=== PATIENT | female | born 1955 | race Caucasian/White ===

== ENCOUNTER 2022-12-05 07:56 | Outpatient (CLI) | payer MEDICARE ==
[2022-12-05 14:48] LABS: BASOPHILS # (AUTO) 0.1 10^3/uL (0.0-0.1); EOSINOPHILS # (AUTO) 0.2 10^3/uL (0.0-0.7); EOSINOPHILS % (AUTO) 2.6 %; HCT - HEMATOCRIT 41.7 % (37.0-47.0); HGB - HEMOGLOBIN 12.8 g/dL (12.0-16.0); LYMPHOCYTES # (AUTO) 2.6 10^3/uL (1.5-3.5); MEAN CORPUSCULAR HEMOGLOBIN 27.4 pg (27.0-31.0); MEAN CORPUSCULAR HGB CONC 30.7 g/dL (32.0-36.0); MEAN CORPUSCULAR VOLUME 89.3 fL (81.0-99.0); MEAN PLATELET VOLUME 12.1 fL (7.9-10.8); MONOCYTES # (AUTO) 0.5 10^3/uL (0.0-1.0); MONOCYTES % (AUTO) 8.1 %; NEUTROPHILS # (AUTO) 2.9 10^3/uL (1.5-6.6); PLT - PLATELET COUNT 245 10^3/uL (130-450); RED BLOOD COUNT 4.67 10^6/uL (4.20-5.40); RED CELL DISTRIBUTION WIDTH 13.8 % (12.0-15.0); WHITE BLOOD COUNT 6.2 x10^3/uL (4.8-10.8)
[2022-12-05 15:25] LABS: THYROID STIMULATING HORMONE 27.57 uIU/mL (0.34-5.60)
[2022-12-05 15:29] LABS: FERRITIN 29.6 ng/mL (11.0-306.8)
[2022-12-05 15:30] LABS: % IRON SATURATION 25 % (20-50); ALBUMIN 4.3 g/dL (3.2-5.5); ALBUMIN/GLOBULIN RATIO 1.6 (1.0-2.2); ALKALINE PHOSPHATASE 42 IU/L (42-121); ALT ALANINE AMINOTRANSFERASE 18 IU/L (10-60); AST ASPARTATE AMINOTRANSFERASE 19 IU/L (10-42); BILIRUBIN,TOTAL 0.8 mg/dL (0.2-1.0); BUN - BLOOD UREA NITROGEN 20 mg/dL (6-20); CALCIUM 9.2 mg/dL (8.5-10.3); CARBON DIOXIDE - CO2 26 mmol/L (21-32); CHLORIDE 103 mmol/L (101-111); CHOL/HDL RATIO 2.8 (<4.4); CHOLESTEROL 262 mg/dL; CREATININE 0.8 mg/dL (0.4-1.0); GFR - MDRD 72 (>89); GLUCOSE 87 mg/dL (70-100); HDL CHOLESTEROL 93 mg/dL; IRON 82 ug/dL (28-170); LDL CHOLESTEROL,CALCULATED 157 mg/dL; LDL/HDL RATIO 1.7 (<4.4); POTASSIUM 3.8 mmol/L (3.5-5.0); SODIUM 138 mmol/L (135-145); TOTAL IRON BINDING CAPACITY 329 ug/dL (250-450); TRANSFERRIN 235 mg/dL (192-382); TRIGLYCERIDES 60 mg/dL; VLDL CHOLESTEROL 12 mg/dL
[2022-12-05 15:55] LABS: FREE T4 (FREE THYROXINE) 0.5 ng/dL (0.58-1.64)
[2022-12-05 16:04] LABS: CRP - C-REACTIVE PROTEIN < 1.0 mg/dL (0-1.0)
[2022-12-06 12:09] LABS: CALCIUM IONIZED SERUM 5.1 mg/dL (4.5-5.6)
== END 2022-12-05 07:57 | disposition home or self-care (01) ==
LOC: LAB.S 07:56
PROVIDERS: ATTEND Internal Medicine
DX: M85.80 Other specified disorders of bone density and structure, unspecified site (principal); Z13.220 Encounter for screening for lipoid disorders; E55.9 Vitamin D deficiency, unspecified; Z86.2 Personal history of diseases of the blood and blood-forming organs and certain disorders involving the immune mechanism; Z13.29 Encounter for screening for other suspected endocrine disorder
CPT/HCPCS: 36415; 80053; 80061; 82306; 82330; 82728; 83540; 83721; 84439; 84443; 84466; 85025; 86140

== ENCOUNTER 2023-01-09 09:44 | Outpatient (CLI) | payer MEDICARE ==
--- NOTE | 2023-01-09 16:04 | DEXA Report ---
PROCEDURE: Dexa Spine and/or Hip INDICATIONS: OSTEOPENIA TECHNIQUE: Dual energy x-ray absorptiometry (DXA) was performed on a [employer] System. Regions measur ed are the AP Spine, femoral neck, and if needed forearm. COMPARISON: None. FINDINGS: Lumbar Spine: Bone Mineral Density 0.805 g/cm/cm,T score -3.1, osteoporosis Left Femoral Neck: Bone Mineral Density 0.745 g/cm/cm, T score -2.1, osteopenia Left Hip: Bone Mineral Density 0.763 g/cm/cm,T score -1.9, osteopenia (T score greater or equal to -1.0: NORMAL) (T score from -1.1 to -2.4: OSTEOPENIA) (T score less than or equal to -2.5 to: OSTEOPOROSIS) Impression: Osteoporosis Patients with diagnosis of osteoporosis or osteopenia should have regular bone mineral density assess ment. For those eligible for Medicare, routine testing is allowed once every 2 years. Testing frequ ency can be increased for patients who have rapidly progressing disease or for those who are receivin g medical therapy to restore bone mass. Reviewed by: Pa Cuevas MD on 01/09/2023 3:03 PM [place] Approved by: Pa Cuevas MD on 01/09/2023 3:03 PM [facility] Station ID: [id number]
== END 2023-01-09 09:45 | disposition home or self-care (01) ==
LOC: DI 09:44
PROVIDERS: ATTEND Internal Medicine
DX: M81.0 Age-related osteoporosis without current pathological fracture (principal); E55.9 Vitamin D deficiency, unspecified

== ENCOUNTER 2023-02-17 07:46 | Outpatient (CLI) | payer MEDICARE ==
[2023-02-17 15:31] LABS: THYROID STIMULATING HORMONE 85.16 uIU/mL (0.34-5.60)
[2023-02-17 16:43] LABS: FREE T4 (FREE THYROXINE) 0.53 ng/dL (0.58-1.64)
== END 2023-02-17 07:47 | disposition home or self-care (01) ==
LOC: LAB.S 07:46
PROVIDERS: ATTEND Internal Medicine
DX: R94.6 Abnormal results of thyroid function studies (principal)
CPT/HCPCS: 36415; 84439; 84443

== ENCOUNTER 2023-03-01 07:20 | Outpatient (CLI) | payer MEDICARE ==
[2023-03-01 15:05] LABS: FREE T3 2.56 pg/mL (2.5-3.9)
[2023-03-01 15:33] LABS: THYROID STIMULATING HORMONE 94.48 uIU/mL (0.34-5.60)
[2023-03-01 16:25] LABS: FREE T4 (FREE THYROXINE) 0.41 ng/dL (0.58-1.64)
[2023-03-02 20:07] LABS: THYROGLOBULIN ANTIBODY >2250.0 IU/mL (0.0-0.9); THYROID PEROXIDASE (TPO) AB 471 IU/mL (0-34)
== END 2023-03-01 07:21 | disposition home or self-care (01) ==
LOC: LAB.S 07:20
PROVIDERS: ATTEND Internal Medicine
DX: R94.6 Abnormal results of thyroid function studies (principal)
CPT/HCPCS: 36415; 84439; 84443; 84481; 86376; 86800